=== PATIENT | male | born 1965 | race Caucasian/White ===

== ENCOUNTER 2024-08-24 09:53 | Day surgery (SDC) | payer OTHER ==
[2024-08-23 13:18] VITALS: BMI 24.3
[~2024-08-24 09:53] MED LIST: LACTATED RINGERS SOLUTION 1,000 ML IV SCH; PROMETHAZINE HCL 25 MG/1 ML VIAL IVPB PRN; oxyCODONE HCL 5 MG TABLET PO PRN
[2024-08-24] MEDS ORDERED: MIDAZOLAM HCL 2 MG/2 ML SINGLE DOSE VIAL ONE (10:17)
[2024-08-24] MEDS ORDERED: METOCLOPRAMIDE HCL INJECTION 10 MG/2 ML VIAL ONE (10:17)
[2024-08-24] MEDS ORDERED: ceFAZolin SODIUM 1 GM VIAL ONE (10:17)
[2024-08-24] MEDS ORDERED: DEXAMETHASONE SOD PHOSPHATE 4 MG/1 ML VIAL ONE ×2 (10:17→11:33)
[2024-08-24] MEDS ORDERED: PROPOFOL 20 ML ONE ×2 (10:19→10:54)
[2024-08-24] MEDS ORDERED: SUCCINYLCHOLINE CHLORIDE 200 MG/10 ML SYRINGE ONE (11:19)
[2024-08-24] MEDS ORDERED: BUPIVACAINE HCL/PF 0.5% (5 MG/ML) 30 ML VIAL IJ ONE (11:33)
[2024-08-24] MEDS ORDERED: BUPIVACAINE HCL/PF 0.5% (5MG/ML) 10 ML VIAL ONE (11:34)
[2024-08-24] MEDS ORDERED: ONDANSETRON 4 MG/2 ML VIAL ONE (14:09)
[2024-08-24] MEDS ORDERED: FENTANYL CITRATE/PF 50 MCG/ML VIAL ONE ×3 (14:49→15:26)
[2024-08-24 15:59] VITALS: RESP 18
[2024-08-24] MEDS ORDERED: oxyCODONE HCL 5 MG TABLET ONE (16:20)
[2024-08-24] MEDS: oxyCODONE HCL 5 MG TABLET PO PRN (16:20)
[2024-08-24 17:21] VITALS: BP 131/81; PULSE 71; TEMP 97.3
== END 2024-08-24 17:22 | disposition home or self-care (01) ==
LOC: FASU 09:53
PROVIDERS: ATTEND Orthopaedic Surgery Sports Medicine
PROC: 0SSG0ZZ Reposition Left Ankle Joint, Open Approach (ICD-10-PCS; 2024-08-24)
PROC: 0QSK04Z Reposition Left Fibula with Internal Fixation Device, Open Approach (ICD-10-PCS; principal; 2024-08-24 12:47)
DX: S82.892A Other fracture of left lower leg, initial encounter for closed fracture (principal); S93.432A Sprain of tibiofibular ligament of left ankle, initial encounter; X58.XXXA Exposure to other specified factors, initial encounter; Y93.9 Activity, unspecified; Y92.9 Unspecified place or not applicable
CPT/HCPCS: 27792; 27829; C1713; 73610-TC-LT-FY; 94760